=== PATIENT | female | born 1945 | race Caucasian/White ===

== ENCOUNTER 2018-03-21 11:14 | Inpatient (IN) | payer OTHER ==
[2018-03-21 13:05] LABS: ADD MAN DIFF? NO
[2018-03-21] MEDS: SOD CHLORIDE 0.9% 500 ML IV (13:18)
[2018-03-21 13:20] LABS: BASOPHILS % 0.4 % (0.0-2.0); EOSINOPHILS # 0.1 10^3/ul (0.0-0.5); EOSINOPHILS % 0.5 % (0.0-7.0); HEMATOCRIT 33.8 % (37.0-47.0); HEMOGLOBIN 11.1 g/dl (12.0-16.0); LYMPHOCYTES # 1.2 10^3/ul (0.8-2.9); LYMPHOCYTES % 12.3 % (15.0-51.0); MEAN CORPUSCULAR HEMOGLOBIN 31.3 pg (29.0-33.0); MEAN CORPUSCULAR HGB CONC 32.8 g/dl (32.0-37.0); MEAN CORPUSCULAR VOLUME 95.2 fl (82.0-101.0); MEAN PLATELET VOLUME 12.1 fl (7.4-10.4); MONOCYTE # 0.4 10^3/ul (0.3-0.9); MONOCYTES % 4.2 % (0.0-11.0); NEUTROPHIL # 7.7 10^3/ul (1.6-7.5); NEUTROPHILS % 78.9 % (39.0-77.0); PLATELET COUNT 114 10^3/UL (140-415); RED BLOOD COUNT 3.55 10^6/ul (4.20-5.40); RED CELL DISTRIBUTION WIDTH 16.2 % (11.5-14.5)
[2018-03-21 13:20] LABS: WHITE BLOOD COUNT 9.8 10^3/ul (4.8-10.8)
[2018-03-21 13:21] LABS: POSITIVE DIFF @See below
[2018-03-21 13:36] LABS: AMMONIA < 9 umol/l (9-30)
[2018-03-21 13:38] LABS: INR 0.98; PROTIME 13.1 Sec (11.9-14.9)
[2018-03-21 13:41] LABS: ALANINE AMINOTRANSFERASE 53 IU/L (13-69); ALBUMIN 3.1 g/dl (3.3-4.9); ALBUMIN/GLOBULIN RATIO 1.03; ALKALINE PHOSPHATASE 147 IU/L (42-121); ANION GAP 10 (5-13); ASPARTATE AMINO TRANSFERASE 32 IU/L (15-46); BILIRUBIN,INDIRECT 0.4 mg/dl (0-1.1); BILIRUBIN,TOTAL 0.4 mg/dl (0.2-1.3); BLOOD UREA NITROGEN 23 mg/dl (7-20); CALCIUM 8.5 mg/dl (8.4-10.2); CARBON DIOXIDE 29 mmol/L (21-31); CHLORIDE 89 mmol/L (97-110); CREATININE 0.53 mg/dl (0.44-1.00); GLUCOSE 127 mg/dl (70-220); SODIUM 128 mmol/L (135-144); TOTAL PROTEIN 6.1 g/dl (6.1-8.1)
[2018-03-21 13:42] LABS: ACETAMINOPHEN < 10.0 ug/ml (10.0-30.0); ETHANOL < 10.0 mg/dl; SALICYLATE < 1.0 mg/dl (5.0-30.0)
[2018-03-21 13:43] LABS: POTASSIUM 5.2 mmol/L (3.5-5.1)
[2018-03-21 13:51] LABS: TROPONIN-I 0.044 ng/ml (0.000-0.120)
[2018-03-21 14:21] LABS: T3 UPTAKE 42.6 % (23.5-40.5); T4 (THYROXINE) 9.4 ug/dl (5.5-11.0)
[2018-03-21 14:25] LABS: ADD UMIC YES; UR ASCORBIC ACID 40 mg/dL (NEGATIVE); UR BACTERIA FEW /HPF (NONE SEEN); UR BILIRUBIN (Dip) NEGATIVE (NEGATIVE); UR BLOOD (Dip) 1+ mg/dL (NEGATIVE); UR CALCIUM OXALATE CRYSTAL MANY /HPF (NONE SEEN); UR CLARITY SLIGHTLY CLOUDY (CLEAR); UR COLOR YELLOW (YELLOW); UR GLUCOSE (Dip) NEGATIVE (NEGATIVE); UR KETONES (Dip) NEGATIVE (NEGATIVE); UR LEUKOCYTE ESTERASE (Dip) TRACE Leu/ul (NEGATIVE); UR MUCUS FEW /HPF (NONE SEEN); UR NITRITE (Dip) NEGATIVE (NEGATIVE); UR RBC > 182 /HPF (0-5); UR SQUAMOUS EPITHELIAL CELL FEW /HPF (FEW); UR TOTAL PROTEIN (Dip) 2+ mg/dl (NEGATIVE); UR UROBILINOGEN (Dip) NEGATIVE (NEGATIVE); UR WBC 19 /HPF (0-5)
[2018-03-21 14:39] LABS: AMPHETAMINE/METHAMPHETAMINE Negative (NEGATIVE); BARBITURATES Negative (NEGATIVE); BENZODIAZEPINES Negative (NEGATIVE); CANNABINOIDS Negative (NEGATIVE); COCAINE Negative (NEGATIVE); OPIATES Negative (NEGATIVE)
[2018-03-21] MEDS: CEFTRIAXONE 1 GM/50 ML (PMX) 50 ML IVPB (15:09)
[2018-03-21 15:30] LABS: AADO2 Arterial 553.6 mmHg (7.0-24.0); Allen Test ACCEPTAB; Arterial Base Excess -0.5 mmol/L (-3.0-3); Arterial Blood Gas Oxygen Sat 97.9 mmHG (95.0-98.0); Arterial COHb 0.3 % (0.0-3.0); Arterial HCO3 25.1 mmol/L (22.0-26.0); Arterial MetHb 0.6 % (0.0-1.5); Arterial Total Hemglobin 10.8 g/dl (12.0-18.0); MODE MASK - NRB; Site Right Radial
[2018-03-21] MEDS ORDERED: DOCUSATE SODIUM 100 MG CAP PO (15:30)
[2018-03-21] MEDS ORDERED: CEFEPIME 1GM/50 ML (PMX) 50 ML IVPB (15:30)
[2018-03-21] MEDS ORDERED: NACL 0.9% 3 ML SYG IV (15:30)
[2018-03-21] MEDS ORDERED: VANCOMYCIN IV PER PHARMACY XX (15:30)
[2018-03-21] MEDS ORDERED: GUAIFENESIN 20 MG/ML 5ML CUP PO (15:30)
[2018-03-21] MEDS ORDERED: ONDANSETRON 4 MG INJ IV ×2 (15:30)
[2018-03-21] MEDS ORDERED: ACETAMINOPHEN 325 MG TAB PO ×2 (15:30)
[2018-03-21] MEDS: AZITHROMYCIN 500MG/NS (PMX) 250 ML IVPB (15:40)
[2018-03-21] MEDS ORDERED: GLUCAGON 1 MG INJ IM (16:00)
[2018-03-21] MEDS ORDERED: GLUCOSE GEL 15 GRAM TUBE PO ×2 (16:00)
[2018-03-21] MEDS ORDERED: DEXTROSE 50% 50 ML SYRINGE IV ×2 (16:00)
[2018-03-21] MEDS ORDERED: GLUCOSE GEL 15 GRAM TUBE BUCCAL (16:00)
[2018-03-21] MEDS ORDERED: INSULIN ASPART [NOVOLOG] 3 ML PEN SC (18:00)
[2018-03-21] MEDS: RIVAROXABAN 20 MG TABLET PO (18:00)
[2018-03-21 18:53] LABS: LACTIC ACID 1.5 mmol/L (0.5-2.0)
[2018-03-21] MEDS: SOD CHLORIDE 0.9% 1,000 ML IV (20:36)
[2018-03-21] MEDS: VANCOMYCIN 1 GM in 250 ML IVPB (20:37)
[2018-03-21] MEDS: METOPROLOL 50 MG TAB GTB (22:45)
[2018-03-21] MEDS: LEVETIRACETAM (100 MG/ML) 5ML CUP GTB (22:45)
[2018-03-21] MEDS: CEFEPIME 1GM/50 ML (PMX) 50 ML IVPB (22:45)
[2018-03-21] MEDS: MELATONIN 3 MG TABLET PO (22:46)
[2018-03-22] MEDS: SOD CHLORIDE 0.9% 1,000 ML IV (00:48)
[2018-03-22] MEDS: ACCU-CHEK XX ×2 (00:54→23:31)
[2018-03-22] MEDS: VANCOMYCIN 500MG/NS (PMX) 100 ML IVPB ×2 (04:21→17:52)
[2018-03-22] MEDS: INSULIN ASPART [NOVOLOG] 3 ML PEN SC ×5 (06:00→23:31)
[2018-03-22 06:11] LABS: ADD MAN DIFF? NO
[2018-03-22 06:12] LABS: BASOPHILS % 0.2 % (0.0-2.0); EOSINOPHILS # 0.1 10^3/ul (0.0-0.5); EOSINOPHILS % 1.1 % (0.0-7.0); HEMATOCRIT 24.2 % (37.0-47.0); LYMPHOCYTES # 0.8 10^3/ul (0.8-2.9); MEAN CORPUSCULAR HEMOGLOBIN 31.6 pg (29.0-33.0); MEAN CORPUSCULAR HGB CONC 33.1 g/dl (32.0-37.0); MEAN CORPUSCULAR VOLUME 95.7 fl (82.0-101.0); MEAN PLATELET VOLUME 10.6 fl (7.4-10.4); MONOCYTE # 0.3 10^3/ul (0.3-0.9); MONOCYTES % 5.3 % (0.0-11.0); NEUTROPHILS % 77.8 % (39.0-77.0); PLATELET COUNT 134 10^3/UL (140-415); RED BLOOD COUNT 2.53 10^6/ul (4.20-5.40); RED CELL DISTRIBUTION WIDTH 16.8 % (11.5-14.5)
[2018-03-22 06:12] LABS: WHITE BLOOD COUNT 6.4 10^3/ul (4.8-10.8)
[2018-03-22 06:38] LABS: ANION GAP 1 (5-13); BLOOD UREA NITROGEN 21 mg/dl (7-20); CARBON DIOXIDE 30 mmol/L (21-31); CHLORIDE 97 mmol/L (97-110); CREATININE 0.46 mg/dl (0.44-1.00); GLUCOSE 121 mg/dl (70-220); MAGNESIUM 1.7 mg/dl (1.7-2.5); POTASSIUM 4.3 mmol/L (3.5-5.1); SODIUM 128 mmol/L (135-144)
[2018-03-22] MEDS: LEVETIRACETAM (100 MG/ML) 5ML CUP GTB ×2 (09:10→20:43)
[2018-03-22] MEDS: CITALOPRAM 20 MG TAB PO (09:10)
[2018-03-22] MEDS: CEFEPIME 1GM/50 ML (PMX) 50 ML IVPB ×2 (09:10→20:43)
[2018-03-22] MEDS: CHLORTHALIDONE 25 MG TAB GTB (09:11)
[2018-03-22] MEDS: AMLODIPINE 5 MG TAB GTB (09:11)
[2018-03-22] MEDS: AMIODARONE 200 MG TAB GTB (09:12)
[2018-03-22] MEDS: LISINOPRIL 20 MG TAB GTB (09:13)
[2018-03-22] MEDS: METOPROLOL 50 MG TAB GTB ×2 (09:13→20:43)
[2018-03-22] MEDS ORDERED: ALBUTEROL 0.083% (NEB) 2.5 MG/3 ML AMP HHN (10:30)
[2018-03-22 12:22] LABS: IRON 20 ug/dl (35-150)
[2018-03-22 12:31] LABS: % IRON SATURATION 9 % SAT (22-52); TOTAL IRON BINDING CAPACITY 227 ug/dl (241-421)
[2018-03-22 16:27] LABS: OCCULT BLOOD STOOL POSITIVE (NEGATIVE)
[2018-03-22] MEDS: DONEPEZIL 5 MG TAB NGT (20:44)
[2018-03-22] MEDS: MELATONIN 3 MG TABLET PO (20:44)
[2018-03-23 03:30] LABS: ADD MAN DIFF? NO
[2018-03-23 03:33] LABS: WHITE BLOOD COUNT 5.2 10^3/ul (4.8-10.8)
[2018-03-23 03:33] LABS: BASOPHILS % 0.4 % (0.0-2.0); EOSINOPHILS # 0.1 10^3/ul (0.0-0.5); EOSINOPHILS % 1.7 % (0.0-7.0); HEMATOCRIT 22.8 % (37.0-47.0); HEMOGLOBIN 7.6 g/dl (12.0-16.0); LYMPHOCYTES # 1.1 10^3/ul (0.8-2.9); LYMPHOCYTES % 20.4 % (15.0-51.0); MEAN CORPUSCULAR HEMOGLOBIN 31.4 pg (29.0-33.0); MEAN CORPUSCULAR HGB CONC 33.3 g/dl (32.0-37.0); MEAN CORPUSCULAR VOLUME 94.2 fl (82.0-101.0); MEAN PLATELET VOLUME 10.4 fl (7.4-10.4); MONOCYTE # 0.4 10^3/ul (0.3-0.9); MONOCYTES % 7.1 % (0.0-11.0); NEUTROPHIL # 3.5 10^3/ul (1.6-7.5); NEUTROPHILS % 66.4 % (39.0-77.0); PLATELET COUNT 148 10^3/UL (140-415); RED BLOOD COUNT 2.42 10^6/ul (4.20-5.40); RED CELL DISTRIBUTION WIDTH 16.5 % (11.5-14.5)
[2018-03-23 04:05] LABS: ANION GAP 6 (5-13); BLOOD UREA NITROGEN 14 mg/dl (7-20); CALCIUM 7.8 mg/dl (8.4-10.2); CARBON DIOXIDE 27 mmol/L (21-31); CHLORIDE 95 mmol/L (97-110); CREATININE 0.47 mg/dl (0.44-1.00); GLUCOSE 90 mg/dl (70-220); POTASSIUM 3.9 mmol/L (3.5-5.1); SODIUM 128 mmol/L (135-144)
[2018-03-23 04:11] LABS: VANCOMYCIN,TROUGH 9.5 ug/ml (10.0-20.0)
[2018-03-23] MEDS: VANCOMYCIN 750 MG in SOD CHLORIDE 0.9% 150 ML IVPB (04:31)
[2018-03-23] MEDS: INSULIN ASPART [NOVOLOG] 3 ML PEN SC ×4 (06:00→23:52)
[2018-03-23] MEDS: CEFEPIME 1GM/50 ML (PMX) 50 ML IVPB ×2 (09:42→20:56)
[2018-03-23] MEDS: LEVETIRACETAM (100 MG/ML) 5ML CUP GTB ×2 (09:43→20:55)
[2018-03-23] MEDS: AMIODARONE 200 MG TAB GTB (09:44)
[2018-03-23] MEDS: AMLODIPINE 5 MG TAB GTB (09:44)
[2018-03-23] MEDS: LISINOPRIL 20 MG TAB GTB (09:44)
[2018-03-23] MEDS: CHLORTHALIDONE 25 MG TAB GTB (09:45)
[2018-03-23] MEDS: METOPROLOL 50 MG TAB GTB ×2 (09:45→20:56)
[2018-03-23] MEDS ORDERED: PENDING SANTYL ORDER FOR WOUND CARE XX (11:30)
[2018-03-23] MEDS ORDERED: COLLAGENASE 5 GM (UD JAR) TOP (11:30)
[2018-03-23] MEDS: BISACODYL (EC) 5 MG TAB PO (15:20)
[2018-03-23] MEDS: COLLAGENASE 5 GM (UD JAR) TOP (16:44)
[2018-03-23] MEDS: PANTOPRAZOLE 40 MG INJ IV (17:47)
[2018-03-23] MEDS: MAGNESIUM CITRATE 300 ML BTL PO (17:47)
[2018-03-23] MEDS: POLYETHYLENE GLYCOL 3350 119 GM POWDER PO ×2 (17:48→18:30)
[2018-03-23] MEDS: DONEPEZIL 5 MG TAB NGT (20:56)
[2018-03-23] MEDS: MELATONIN 3 MG TABLET PO (20:56)
[2018-03-24] MEDS: ACCU-CHEK XX (02:00)
[2018-03-24] MEDS: POLYETHYLENE GLYCOL 3350 119 GM POWDER PO (05:40)
[2018-03-24] MEDS: PANTOPRAZOLE 40 MG INJ IV ×2 (05:40→18:00)
[2018-03-24] MEDS: INSULIN ASPART [NOVOLOG] 3 ML PEN SC ×3 (05:45→18:00)
[2018-03-24 07:02] LABS: ABNORMAL IP MESSAGE 1; HEMOGLOBIN 8.4 g/dl (12.0-16.0); MEAN CORPUSCULAR HEMOGLOBIN 30.9 pg (29.0-33.0); MEAN CORPUSCULAR HGB CONC 32.3 g/dl (32.0-37.0); MEAN CORPUSCULAR VOLUME 95.6 fl (82.0-101.0); MEAN PLATELET VOLUME 10.8 fl (7.4-10.4); PLATELET COUNT 169 10^3/UL (140-415); RED BLOOD COUNT 2.72 10^6/ul (4.20-5.40); RED CELL DISTRIBUTION WIDTH 17.1 % (11.5-14.5)
[2018-03-24 07:02] LABS: WHITE BLOOD COUNT 4.8 10^3/ul (4.8-10.8)
[2018-03-24 07:14] LABS: ADD MAN DIFF? YES; POSITIVE DIFF @See below
[2018-03-24 07:18] LABS: INR 0.99; PROTIME 13.2 Sec (11.9-14.9)
[2018-03-24 07:29] LABS: ANION GAP 8 (5-13); BLOOD UREA NITROGEN 11 mg/dl (7-20); CALCIUM 8.1 mg/dl (8.4-10.2); CARBON DIOXIDE 27 mmol/L (21-31); CHLORIDE 96 mmol/L (97-110); CREATININE 0.45 mg/dl (0.44-1.00); GLUCOSE 86 mg/dl (70-220); POTASSIUM 3.7 mmol/L (3.5-5.1); SODIUM 131 mmol/L (135-144)
[2018-03-24] MEDS: BISACODYL (EC) 5 MG TAB PO (08:00)
[2018-03-24] MEDS: COLLAGENASE 5 GM (UD JAR) TOP (08:51)
[2018-03-24] MEDS: CEFEPIME 1GM/50 ML (PMX) 50 ML IVPB ×2 (08:51→21:18)
[2018-03-24 09:00] LABS: ANISOCYTOSIS 1+ (0-0); BAND NEUTROPHILS #M 0.1 10^3/ul (0.0-0.6); BAND NEUTROPHILS % (M) 4 % (0-4); EOSINOPHILS % (M) 4 % (0-7); LYMPHOCYTES #M 1.1 10^3/ul (0.8-2.9); LYMPHOCYTES % (M) 24 % (15-51); METAMYELOCYTES #M 0.1 10^3/ul (0.0-0.0); METAMYELOCYTES %M 3 % (0-0); MONOCYTE #M 0.1 10^3/ul (0.3-0.9); MONOCYTES % (M) 4 % (0-11); PLATELET ESTIMATE NORMAL; POLYCHROMASIA 2+ (0-0); PROMYELOCYTES % (M) 1 % (0-0); REACTIVE LYMPHOCYTES #M 0.1 10^3/ul (0.0-0.0); REACTIVE LYMPHOCYTES% (M) 3 % (0-0); SEG NEUT #M 2.7 10^3/ul (1.6-7.5); SEGMENTED NEUTROPHILS (M) % 57 % (39-77); SMUDGE%M 3 % (0-0); SPHEROCYTES 1+ (0-0)
[2018-03-24] MEDS: METOPROLOL 50 MG TAB GTB ×2 (09:00→21:18)
[2018-03-24] MEDS: AMLODIPINE 5 MG TAB GTB (09:00)
[2018-03-24] MEDS: LEVETIRACETAM (100 MG/ML) 5ML CUP GTB ×2 (09:00→21:18)
[2018-03-24] MEDS: CHLORTHALIDONE 25 MG TAB GTB (09:00)
[2018-03-24] MEDS: AMIODARONE 200 MG TAB GTB (09:00)
[2018-03-24] MEDS: LISINOPRIL 20 MG TAB GTB (09:00)
[2018-03-24 10:30] LABS: MAGNESIUM 2.2 mg/dl (1.7-2.5)
[2018-03-24] MEDS ORDERED: POTASSIUM CHLORIDE 20 MEQ POWDER FOR ORAL SOLN GTB (10:30)
[2018-03-24] MEDS: POTASSIUM CHLORIDE 100 ML IVPB ×2 (12:44→14:00)
[2018-03-24 16:19] LABS: ADD UMIC YES; UR ASCORBIC ACID 20 mg/dL (NEGATIVE); UR BACTERIA FEW /HPF (NONE SEEN); UR BILIRUBIN (Dip) NEGATIVE (NEGATIVE); UR BLOOD (Dip) NEGATIVE (NEGATIVE); UR BUDDING YEAST MODERATE /HPF (NONE SEEN); UR CLARITY CLOUDY (CLEAR); UR COLOR YELLOW (YELLOW); UR GLUCOSE (Dip) NEGATIVE (NEGATIVE); UR KETONES (Dip) TRACE mg/dL (NEGATIVE); UR LEUKOCYTE ESTERASE (Dip) NEGATIVE Leu/ul (NEGATIVE); UR MUCUS FEW /HPF (NONE SEEN); UR NITRITE (Dip) NEGATIVE (NEGATIVE); UR RBC 15 /HPF (0-5); UR SPECIFIC GRAVITY (Dip) 1.015 (1.003-1.030); UR TOTAL PROTEIN (Dip) 1+ mg/dl (NEGATIVE); UR UROBILINOGEN (Dip) NEGATIVE (NEGATIVE); UR WBC 8 /HPF (0-5)
[2018-03-24] MEDS: PROPOFOL 20 ML (17:13)
[2018-03-24] MEDS: DONEPEZIL 5 MG TAB NGT (21:17)
[2018-03-24] MEDS: MELATONIN 3 MG TABLET PO (21:17)
[2018-03-25] MEDS: ACCU-CHEK XX (02:00)
[2018-03-25] MEDS: INSULIN ASPART [NOVOLOG] 3 ML PEN SC ×4 (06:00→18:00)
[2018-03-25] MEDS: PANTOPRAZOLE 40 MG INJ IV (06:00)
[2018-03-25 06:26] LABS: ADD MAN DIFF? NO
[2018-03-25 06:30] LABS: ABNORMAL IP MESSAGE 1; BASOPHILS % 0.4 % (0.0-2.0); EOSINOPHILS # 0.1 10^3/ul (0.0-0.5); EOSINOPHILS % 1.6 % (0.0-7.0); HEMATOCRIT 24.8 % (37.0-47.0); HEMOGLOBIN 8.1 g/dl (12.0-16.0); LYMPHOCYTES # 1.2 10^3/ul (0.8-2.9); LYMPHOCYTES % 23.8 % (15.0-51.0); MEAN CORPUSCULAR HEMOGLOBIN 31.2 pg (29.0-33.0); MEAN CORPUSCULAR HGB CONC 32.7 g/dl (32.0-37.0); MEAN CORPUSCULAR VOLUME 95.4 fl (82.0-101.0); MEAN PLATELET VOLUME 10.3 fl (7.4-10.4); MONOCYTE # 0.7 10^3/ul (0.3-0.9); MONOCYTES % 12.7 % (0.0-11.0); NEUTROPHIL # 2.9 10^3/ul (1.6-7.5); NEUTROPHILS % 56.2 % (39.0-77.0); PLATELET COUNT 199 10^3/UL (140-415); RED CELL DISTRIBUTION WIDTH 17.2 % (11.5-14.5)
[2018-03-25 06:30] LABS: WHITE BLOOD COUNT 5.1 10^3/ul (4.8-10.8)
[2018-03-25 07:01] LABS: ANION GAP 9 (5-13); BLOOD UREA NITROGEN 11 mg/dl (7-20); CALCIUM 8.2 mg/dl (8.4-10.2); CARBON DIOXIDE 24 mmol/L (21-31); CHLORIDE 97 mmol/L (97-110); CREATININE 0.46 mg/dl (0.44-1.00); GLUCOSE 82 mg/dl (70-220); MAGNESIUM 1.8 mg/dl (1.7-2.5); POTASSIUM 4.1 mmol/L (3.5-5.1); SODIUM 130 mmol/L (135-144)
[2018-03-25 07:05] LABS: POSITIVE DIFF @See below
[2018-03-25] MEDS: AMIODARONE 200 MG TAB GTB (08:48)
[2018-03-25] MEDS: COLLAGENASE 5 GM (UD JAR) TOP (08:48)
[2018-03-25] MEDS: LISINOPRIL 20 MG TAB GTB (08:48)
[2018-03-25] MEDS: LEVETIRACETAM (100 MG/ML) 5ML CUP GTB ×2 (08:48→21:41)
[2018-03-25] MEDS: AMLODIPINE 5 MG TAB GTB (08:48)
[2018-03-25] MEDS: CHLORTHALIDONE 25 MG TAB GTB (08:48)
[2018-03-25] MEDS: CEFEPIME 1GM/50 ML (PMX) 50 ML IVPB ×2 (08:48→21:41)
[2018-03-25] MEDS: METOPROLOL 50 MG TAB GTB ×2 (08:48→21:41)
[2018-03-25 09:07] LABS: ANISOCYTOSIS 1+ (0-0); BAND NEUTROPHILS #M 0.2 10^3/ul (0.0-0.6); BAND NEUTROPHILS % (M) 4 % (0-4); EOSINOPHILS % (M) 2 % (0-7); ERYTHROBLAST% (NRBC) (M) 1 % (0-0); LYMPHOCYTES #M 1.2 10^3/ul (0.8-2.9); LYMPHOCYTES % (M) 24 % (15-51); METAMYELOCYTES #M 0.1 10^3/ul (0.0-0.0); METAMYELOCYTES %M 2 % (0-0); MONOCYTE #M 0.2 10^3/ul (0.3-0.9); MONOCYTES % (M) 5 % (0-11); MYELOCYTES #M 0.1 10^3/ul (0.0-0.0); MYELOCYTES % (M) 3 % (0-0); PLATELET ESTIMATE NORMAL; POLYCHROMASIA 2+ (0-0); REACTIVE LYMPHOCYTES% (M) 1 % (0-0); SEGMENTED NEUTROPHILS (M) % 59 % (39-77); SMUDGE%M 10 % (0-0)
[2018-03-25] MEDS: FLUCONAZOLE 200 MG TAB GTB (10:30)
[2018-03-25] MEDS: MAGNESIUM SULFATE 2 GM/50 ML 50 ML IVPB (12:30)
[2018-03-25] MEDS: RIVAROXABAN 20 MG TABLET PO (18:47)
[2018-03-25] MEDS: DONEPEZIL 5 MG TAB NGT (21:41)
[2018-03-25] MEDS: MELATONIN 3 MG TABLET PO (21:41)
[2018-03-26] MEDS: ACCU-CHEK XX (02:00)
[2018-03-26] MEDS: LANSOPRAZOLE 30 MG CAP NGT (05:47)
[2018-03-26 05:49] LABS: ABNORMAL IP MESSAGE 1; HEMATOCRIT 26.4 % (37.0-47.0); HEMOGLOBIN 8.5 g/dl (12.0-16.0); MEAN CORPUSCULAR HEMOGLOBIN 30.8 pg (29.0-33.0); MEAN CORPUSCULAR HGB CONC 32.2 g/dl (32.0-37.0); MEAN CORPUSCULAR VOLUME 95.7 fl (82.0-101.0); MEAN PLATELET VOLUME 10.2 fl (7.4-10.4); PLATELET COUNT 216 10^3/UL (140-415); RED BLOOD COUNT 2.76 10^6/ul (4.20-5.40); RED CELL DISTRIBUTION WIDTH 17.4 % (11.5-14.5)
[2018-03-26 05:49] LABS: WHITE BLOOD COUNT 5.8 10^3/ul (4.8-10.8)
[2018-03-26] MEDS: INSULIN ASPART [NOVOLOG] 3 ML PEN SC ×2 (06:00)
[2018-03-26 06:03] LABS: ADD MAN DIFF? YES; POSITIVE DIFF @See below
[2018-03-26 06:10] LABS: ANION GAP 8 (5-13); BLOOD UREA NITROGEN 11 mg/dl (7-20); CARBON DIOXIDE 27 mmol/L (21-31); CHLORIDE 93 mmol/L (97-110); CREATININE 0.48 mg/dl (0.44-1.00); Estimated GFR > 60 mL/min (>60); GLUCOSE 91 mg/dl (70-220); POTASSIUM 3.9 mmol/L (3.5-5.1)
[2018-03-26 06:26] LABS: SODIUM 128 mmol/L (135-144)
[2018-03-26 08:30] LABS: ANISOCYTOSIS 1+ (0-0); BAND NEUTROPHILS #M 0.2 10^3/ul (0.0-0.6); BAND NEUTROPHILS % (M) 5 % (0-4); EOSINOPHILS % (M) 3 % (0-7); GIANT THROMBO% (M) 2 % (0-0); LYMPHOCYTES #M 1.1 10^3/ul (0.8-2.9); LYMPHOCYTES % (M) 20 % (15-51); METAMYELOCYTES %M 1 % (0-0); MONOCYTE #M 0.4 10^3/ul (0.3-0.9); MONOCYTES % (M) 7 % (0-11); MYELOCYTES #M 0.2 10^3/ul (0.0-0.0); MYELOCYTES % (M) 5 % (0-0); PLATELET ESTIMATE NORMAL; POLYCHROMASIA 2+ (0-0); PROMYELOCYTES #M 0.1 10^3/ul (0-0); PROMYELOCYTES % (M) 2 % (0-0); SEG NEUT #M 3.3 10^3/ul (1.6-7.5); SEGMENTED NEUTROPHILS (M) % 57 % (39-77); SMUDGE%M 6 % (0-0)
[2018-03-26] MEDS: CEFEPIME 1GM/50 ML (PMX) 50 ML IVPB (09:01)
[2018-03-26] MEDS: LEVETIRACETAM (100 MG/ML) 5ML CUP GTB (09:02)
[2018-03-26] MEDS: LISINOPRIL 20 MG TAB GTB (09:03)
[2018-03-26] MEDS: FLUCONAZOLE 200 MG TAB GTB (09:03)
[2018-03-26] MEDS: AMIODARONE 200 MG TAB GTB (09:03)
[2018-03-26] MEDS: COLLAGENASE 5 GM (UD JAR) TOP (09:04)
[2018-03-26] MEDS: METOPROLOL 50 MG TAB GTB (09:04)
[2018-03-26] MEDS: AMLODIPINE 5 MG TAB GTB (09:04)
[2018-03-26 10:46] LABS: PROCALCITONIN 0.22 ng/mL (<0.10)
== END 2018-03-26 10:00 | disposition hospice, home (50) | DRG 193 ==
LOC: E/R 11:14 → 2NE 15:10
PROVIDERS: Hospitalist
PROC: 0DB98ZX Excision of Duodenum, Via Natural or Artificial Opening Endoscopic, Diagnostic (ICD-10-PCS; principal; 2018-03-24 16:20)
PROC: 0DBK8ZX Excision of Ascending Colon, Via Natural or Artificial Opening Endoscopic, Diagnostic (ICD-10-PCS; 2018-03-24 16:20)
PROC: 0DBL8ZX Excision of Transverse Colon, Via Natural or Artificial Opening Endoscopic, Diagnostic (ICD-10-PCS; 2018-03-24 16:20)
DX: J18.9 Pneumonia, unspecified organism (principal); L89.153 Pressure ulcer of sacral region, stage 3; J96.21 Acute and chronic respiratory failure with hypoxia; G93.40 Encephalopathy, unspecified; C34.90 Malignant neoplasm of unspecified part of unspecified bronchus or lung; B37.49 Other urogenital candidiasis; K56.600 Partial intestinal obstruction, unspecified as to cause; D64.9 Anemia, unspecified; D50.9 Iron deficiency anemia, unspecified; E78.5 Hyperlipidemia, unspecified; E11.9 Type 2 diabetes mellitus without complications; F03.90 Unspecified dementia, unspecified severity, without behavioral disturbance, psychotic disturbance, mood disturbance, and anxiety; F32.9 Major depressive disorder, single episode, unspecified; G40.909 Epilepsy, unspecified, not intractable, without status epilepticus; I10 Essential (primary) hypertension; I48.0 Paroxysmal atrial fibrillation; J44.9 Chronic obstructive pulmonary disease, unspecified; K22.2 Esophageal obstruction; K44.9 Diaphragmatic hernia without obstruction or gangrene; R13.10 Dysphagia, unspecified; R19.5 Other fecal abnormalities; T17.990A Other foreign object in respiratory tract, part unspecified in causing asphyxiation, initial encounter; Z66 Do not resuscitate; Z93.0 Tracheostomy status; Z93.1 Gastrostomy status; Z86.73 Personal history of transient ischemic attack (TIA), and cerebral infarction without residual deficits; Z87.891 Personal history of nicotine dependence; Z79.01 Long term (current) use of anticoagulants
CPT/HCPCS: 36415; 36600; 70450; 71045; 80048; 80053; 80202; 80307; 81001; 82140; 82270; 82728; 82803; 82962; 83540; 83605; 83735; 84100; 84145; 84436; 84479; 84484; 85025; 85610; 87070; 87086; 88305; 93005; 96361; 96374; 99285-25

== ENCOUNTER 2018-03-27 20:18 | Emergency (ER) | payer OTHER | END 2018-03-27 20:40 | disposition home or self-care (01) | LOC: E/R 20:18 | DX: K94.23 Gastrostomy malfunction (principal); R40.2142 Coma scale, eyes open, spontaneous, at arrival to emergency department; R40.2252 Coma scale, best verbal response, oriented, at arrival to emergency department; R40.2362 Coma scale, best motor response, obeys commands, at arrival to emergency department; Z85.118 Personal history of other malignant neoplasm of bronchus and lung; Z79.01 Long term (current) use of anticoagulants; Z86.73 Personal history of transient ischemic attack (TIA), and cerebral infarction without residual deficits; Z87.891 Personal history of nicotine dependence | CPT/HCPCS: 99283 ==